=== PATIENT | male | born 1940 | race Caucasian/White ===

== ENCOUNTER 2016-06-29 12:01 | Inpatient (IN) | payer BC, OTHER ==
[~2016-06-29] VITALS: Ht 190.5 cm; Wt 113.3 kg
[~2016-06-29 12:01] MED LIST: AMLO-114 PO; ATEN-173 PO; CALC625T35 PO; DIGO0.2576 PO; ENAL10TA88 PO; FURO40TA3 PO; GABA800T2 PO; GLIP10TA10 PO; INSDGI SC; ISOS30TA13 PO; MAGN400T5 PO; METF1000 PO; MULTTAB58 PO; NITR0.4S UT; PLN/10 PO; SIMV10TA5 PO; SITA50TA9 PO; TEMA-79 PO; TRAM-10 PO; WARF6TAB PO
[2016-06-29] MEDS ORDERED: SODIUM CHLORIDE 0.9% 1000ML 1,000 ML IV STA (13:00)
[2016-06-29] MEDS ORDERED: ONDANSETRON INJ 2 MG/ML 2 ML VIAL IV STA (13:00)
[2016-06-29 13:49] LABS: MANUAL MICROSCOPIC REQUIRED? YES; URINE APPEARANCE CLOUDY (CLEAR); URINE BILIRUBIN NEG (NEG); URINE COLOR RED; URINE NITRITE NEG (NEG); UROBILINOGEN NEG (NEG)
[2016-06-29 13:50] LABS: BASO % 0.5 %; BASO ABS # 0.04 K/uL (0-0.2); EOS % 1.4 %; HEMATOCRIT 34.4 % (42-52); IG% 0.1 %; LYMPH % 16.7 %; LYMPH ABS # 1.22 K/uL (1.2-3.4); MEAN CELL VOLUME 85.4 fL (80-100); MEAN CORPUSCULAR HEMOGLOBIN 27.8 pg (25-34); MEAN CORPUSCULAR HGB CONC 32.6 g/dl (32-36); MEAN PLATELET VOLUME 11.6 fL (7.4-10.4); MONO % 7.7 %; NEUT % 73.6 %; PLATELET COUNT 160 K/uL (130-400); RED BLOOD COUNT 4.03 M/uL (4.7-6.1); WHITE BLOOD COUNT 7.29 K/uL (4.8-10.8)
[2016-06-29 14:00] LABS: PARTIAL THROMBOPLASTIN RATIO 1.3; PROTHROMBIN TIME (PATIENT) 22.6 SECONDS (9.0-12.0)
[2016-06-29 14:06] LABS: REVIEW REQ? NO
[2016-06-29 14:09] LABS: ALT/SGPT 28 U/L (12-78); BLOOD UREA NITROGEN 12 mg/dl (7-18); BUN/CREATININE RATIO 12.2 (10-20); CALCIUM 9.8 mg/dl (8.5-10.1); CARBON DIOXIDE 29 mmol/L (21-32); CHLORIDE 101 mmol/L (98-107); GLUCOSE 157 mg/dl (70-99); POTASSIUM 3.6 mmol/L (3.5-5.1); SODIUM 142 mmol/L (136-145)
[2016-06-29 14:23] LABS: ALKALINE PHOSPHATASE 63 U/L (45-117); AST/SGOT 42 U/L (15-37)
[2016-06-29 14:24] LABS: URINE RBC >30 /hpf (0-4)
[2016-06-29 14:25] LABS: URINE BACTERIA NEG (NEG)
[2016-06-29 14:26] LABS: ANISOCYTOSIS PRESENT; COMPLETE YES; OVALOCYTES 1+
--- NOTE | 2016-06-29 14:27 | DIAGNOSTIC IMAGING REPORT ---
ABDOMEN AND PELVIS CT WITHOUT CONTRAST CT DOSE: 1056.09 mGy.cm HISTORY: Left flank pain. TECHNIQUE: Multiaxial CT images of the abdomen and pelvis were performed without contrast. COMPARISON STUDY: None. FINDINGS: There is a 5 mm indeterminate pulmonary nodule within the right lower lobe on image 28. No pneumoperitoneum or pneumatosis. Old, healed left-sided rib fractures. There is a thick-walled hypodense 6 cm lesion within the right hepatic dome. There is also an adjacent 2.3 cm hypodense lesion within the left hepatic lobe. Prior cholecystectomy. The adrenal glands and pancreas are unremarkable. Tiny fat-containing umbilical hernia. Suboptimal evaluation for bowel pathology due to the lack of intravenous and oral contrast. However, there is no definite bowel wall thickening or obstruction. Colonic diverticulosis. The prostate gland is enlarged measuring 7.8 cm. Hyperdense material within the bladder lumen favors a blood clot. The spleen is enlarged measuring 15 cm in length. There is a 7 mm hypodense lesion at the splenic dome. This is too small to characterize. No retroperitoneal lymphadenopathy. Small right lower quadrant Spigelian hernia. This contains a nodular hypodense focus which measures 3.3 x 1.3 cm. This could represent a soft tissue nodule versus fluid within the hernia sac. There is a 6 mm stone within the right kidney and a punctate stone within the left kidney. No hydronephrosis. There are few hypodense lesions within the kidneys. The largest in the right kidney measures 4.2 cm. These are incompletely characterize on this noncontrast study but favor cysts. IMPRESSION: 1. A thick-walled hypodense 6 cm lesion within the right hepatic dome. This likely represents an abscess. A hepatic mass could also have a similar appearance. Therefore, recommend follow-up to ensure resolution. 2. There is also a 2.3 cm hypodense lesion within the left hepatic dome. This is incompletely characterize on this noncontrast study. This could also represent a developing abscess or hepatic mass. 3. Hyperdense material within the bladder lumen suggestive of a blood clot. This could obscure an underlying bladder mass. Cystoscopy is recommended for further evaluation on a nonemergent basis. 4. Bilateral nephrolithiasis. No hydronephrosis. 5. A small right lower quadrant Spigelian hernia which contains a 3.3 x 1.3 cm lobular hypodense focus. This could represent a small amount of fluid or soft tissue nodule. Follow up is recommended to ensure stability of this abnormality. 6. Splenomegaly. 7. A 5 mm indeterminate pulmonary nodule in the right lower lobe. Please refer to the chart below for recommended follow-up. Please refer to below summary of Fleischner criteria recommendations for follow-up of incidental CT nodules (Yeyo Neff, Guidelines for management of small pulmonary nodules detected on CT scans: A statement from the Fleischner Society, Radiology 237: [phone].) Low Risk Patient: Minimal or no smoking or other known risk factors for malignancy <=4 mm: No follow-up needed. >4-6 mm: Initial follow-up CT at 12 months; if unchanged, no further follow-up. >6-8 mm: Initial follow-up CT at 6-12 months then at 18-24 months if no change. >8 mm: Follow-up CT at \R\3, 9, 24 months, or PET and/or biopsy. High Risk Patient: History of smoking or other known risk factors <=4 mm: Follow-up at 12 months; if unchanged, no further follow-up. >4-6 mm: Initial follow-up CT at 6-12 months then at 18-24 months if no change. >6-8 mm: Initial follow-up CT at 3-6 months then at 9-12 and 24 months if no change. >8 mm: Same as low risk patient. Note: Nodule size measured as average of length and width. Ground glass or partly solid nodules may require longer follow-up to exclude indolent adenocarcinoma. Electronically signed by: Jam Metzger M.D. 06/29/2016 2:26 PM Dictated Date/Time: 06/29/2016 2:08 PM
[2016-06-29] MEDS ORDERED: LNX25 PO (14:41)
[2016-06-29] MEDS ORDERED: WARF10TA4 PO (14:41)
[2016-06-29] MEDS ORDERED: CLOP1TAB15 PO (14:41)
[2016-06-29] MEDS ORDERED: INSDGI SC (14:41)
[2016-06-29] MEDS ORDERED: FERR325T5 PO (14:41)
[2016-06-29] MEDS ORDERED: IMDSR/30 PO (14:41)
--- NOTE | 2016-06-29 19:32 | EMERGENCY ROOM VISIT NOTE ---
History Report prepared by Bertram: Glenys Heath Under the Supervision of: Dr. Esequiel Yoo D.O. First contact with patient: 12:56 Chief Complaint: URINARY SYMPTOMS Stated Complaint: URINARY BLEEDING Nursing Triage Summary: pt here with hematuria since last night denies any pain, frequency urine is bright red with clots. only have hx of liver ca hx of hematuria several mos ago, was to have cystoscope but bleeding stopped and did not have procedure on coumadin and plavix History of Present Illness The patient is a 75 year old male who presents to the Emergency Room with complaints of persistent hematuria which started last night. He has a history of kidney stones, but he has not had one in a while. In December 2010, he had a kidney stone which required lithotripsy to resolve. He has some back pain on the left side. He also has been feeling nauseous. He denies any fevers, vomiting , and abdominal pain. He has no history of cancer in the bladder or kidney. He has had blood work recently which found that he was anemic for which is taking iron. He has a history of hypertension, diabetes, or Afib. He is on Coumadin and Plavix. Source of History: patient Onset: last night Position: other (urinary) Quality: other (hematuria) Timing: other (persistent) Associated Symptoms: + back pain (left side), + nausea, No abdominal pain, No fevers, No vomiting Review of Systems See HPI for pertinent positives & negatives. A total of 10 systems reviewed and were otherwise negative. Past Medical & Surgical Medical Problems: (1) Hematuria, gross (2) No significant medical problems Surgical Problems: (1) No significant past surgical history Family History Noncontributory secondary to age. Social History Smoking Status: Never Smoker Alcohol Use: none Marital Status: Housing Status: lives with family Occupation Status: retired Current/Historical Medications Scheduled Amlodipine (Norvasc), 10 MG PO DAILY Atenolol (Tenormin), 25 MG PO Q2D Clopidogrel (Plavix), 75 MG PO DAILY Digoxin (Digoxin), 2 TAB PO DAILY Enalapril (Vasotec), 10 MG PO BID Felodipine (Felodipine ER), 10 MG PO DAILY Ferrous Sulfate (Ferrous Sulfate), 1 TAB PO TID Gabapentin (Neurontin), 800 MG PO BID Glipizide (Glipizide), 10 MG PO BID Insulin Glargine (Lantus), 40 UNITS SC QPM Isosorbide Mononitrate (Isosorbide Mononitrate ER), 1 TAB PO DAILY Magnesium Oxide (Mag-Ox), 400 MG PO DAILY Metformin Hcl (Glucophage), 1,000 MG PO QPM Multiple Vitamin (Multivitamin), 1 TAB PO DAILY Nitroglycerin (Nitrostat), 0.4 MG UT PRN Simvastatin (Zocor), 10 MG PO QPM Sitagliptin-Metformin Hcl (Janumet), 2 TABS PO DAILY Warfarin Sod (Jantoven), 10 MG PO DAILY Scheduled PRN Furosemide (Lasix), 40 MG PO DAILY PRN for edema/weight gain Temazepam (Restoril), 15 MG PO HS PRN for Sleep Tramadol (Ultram), 50 MG PO Q4H PRN for Pain Allergies Coded Allergies: No Known Allergies (Unverified , 06/29/16) PER PRE-ANESTHESIA QUESTIONNAIRE Physical Exam Vital Signs Date Time Temp Pulse Resp B/P Pulse Ox O2 Delivery O2 Flow Rate FiO2 06/29/16 18:00 57 18 163/66 96 Room Air 06/29/16 16:03 55 14 150/67 97 Room Air 06/29/16 14:12 58 18 151/69 94 Room Air 06/29/16 13:27 61 06/29/16 12:34 80 16 146/71 98 Room Air 06/29/16 12:13 36.9 63 16 154/63 96 Room Air Physical Exam GENERAL: Patient is awake, alert, and in no acute distress. Patient is resting comfortably and showing no signs of anxiety EYES: The conjunctivae are clear. The pupils are round and reactive. EARS, NOSE, MOUTH AND THROAT: The nose is without any evidence of any deformity. Mucous membranes are moist tongue is midline NECK: The neck is nontender and supple. RESPIRATORY: Normal respiratory effort is noted there is no evidence of wheezing rhonchi or rales CARDIOVASCULAR: Regular rate and rhythm noted to auscultation. Systolic murmur noted to auscultation. GASTROINTESTINAL: The abdomen is soft. Bowel sounds are present in all quadrants. Abdomen is nontender BACK: No midline tenderness or or step-off noted range of motion in flexion extension as well as rotation no signs of muscle spasm noted MUSCULOSKELETAL/EXTREMITIES: There is no evidence of gross deformity full range of motion is noted in the hips and shoulders SKIN: There is no obvious evidence of any rash. There are no petechiae, pallor or cyanosis noted. Pedal edema bilaterally. NEUROLOGIC: Patient is awake alert and oriented x3. Medical Decision & Procedures ER Provider Diagnostic Interpretation: Radiology results as stated below per my review and radiologist interpretation: ABDOMEN AND PELVIS CT WITHOUT CONTRAST CT DOSE: 1056.09 mGy.cm HISTORY: Left flank pain. TECHNIQUE: Multiaxial CT images of the abdomen and pelvis were performed without contrast. COMPARISON STUDY: None. FINDINGS: There is a 5 mm indeterminate pulmonary nodule within the right lower lobe on image 28. No pneumoperitoneum or pneumatosis. Old, healed left-sided rib fractures. There is a thick-walled hypodense 6 cm lesion within the right hepatic dome. There is also an adjacent 2.3 cm hypodense lesion within the left hepatic lobe. Prior cholecystectomy. The adrenal glands and pancreas are unremarkable. Tiny fat-containing umbilical hernia. Suboptimal evaluation for bowel pathology due to the lack of intravenous and oral contrast. However, there is no definite bowel wall thickening or obstruction. Colonic diverticulosis. The prostate gland is enlarged measuring 7.8 cm. Hyperdense material within the bladder lumen favors a blood clot. The spleen is enlarged measuring 15 cm in length. There is a 7 mm hypodense lesion at the splenic dome. This is too small to characterize. No retroperitoneal lymphadenopathy. Small right lower quadrant Spigelian hernia. This contains a nodular hypodense focus which measures 3.3 x 1.3 cm. This could represent a soft tissue nodule versus fluid within the hernia sac. There is a 6 mm stone within the right kidney and a punctate stone within the left kidney. No hydronephrosis. There are few hypodense lesions within the kidneys. The largest in the right kidney measures 4.2 cm. These are incompletely characterize on this noncontrast study but favor cysts. IMPRESSION: 1. A thick-walled hypodense 6 cm lesion within the right hepatic dome. This likely represents an abscess. A hepatic mass could also have a similar appearance. Therefore, recommend follow-up to ensure resolution. 2. There is also a 2.3 cm hypodense lesion within the left hepatic dome. This is incompletely characterize on this noncontrast study. This could also represent a developing abscess or hepatic mass. 3. Hyperdense material within the bladder lumen suggestive of a blood clot. This could obscure an underlying bladder mass. Cystoscopy is recommended for further evaluation on a nonemergent basis. 4. Bilateral nephrolithiasis. No hydronephrosis. 5. A small right lower quadrant Spigelian hernia which contains a 3.3 x 1.3 cm lobular hypodense focus. This could represent a small amount of fluid or soft tissue nodule. Follow up is recommended to ensure stability of this abnormality. 6. Splenomegaly. 7. A 5 mm indeterminate pulmonary nodule in the right lower lobe. Please refer to the chart below for recommended follow-up. Please refer to below summary of Fleischner criteria recommendations for follow-up of incidental CT nodules (Yeyo Neff, Guidelines for management of small pulmonary nodules detected on CT scans: A statement from the Fleischner Society, Radiology 237: [phone].) Low Risk Patient: Minimal or no smoking or other known risk factors for malignancy <=4 mm: No follow-up needed. >4-6 mm: Initial follow-up CT at 12 months; if unchanged, no further follow-up. >6-8 mm: Initial follow-up CT at 6-12 months then at 18-24 months if no change. >8 mm: Follow-up CT at \R\3, 9, 24 months, or PET and/or biopsy. High Risk Patient: History of smoking or other known risk factors <=4 mm: Follow-up at 12 months; if unchanged, no further follow-up. >4-6 mm: Initial follow-up CT at 6-12 months then at 18-24 months if no change. >6-8 mm: Initial follow-up CT at 3-6 months then at 9-12 and 24 months if no change. >8 mm: Same as low risk patient. Note: Nodule size measured as average of length and width. Ground glass or partly solid nodules may require longer follow-up to exclude indolent adenocarcinoma. Electronically signed by: Jam Metzger M.D. 06/29/2016 2:26 PM Dictated Date/Time: 06/29/2016 2:08 PM Laboratory Results 06/29/16 13:30 Red Blood Count 4.03, Mean Corpuscular Volume 85.4, Mean Corpuscular Hemoglobin 27.8, Mean Corpuscular Hemoglobin Concent 32.6, Mean Platelet Volume 11.6, Neutrophils (%) (Auto) 73.6, Lymphocytes (%) (Auto) 16.7, Monocytes (%) (Auto) 7.7, Eosinophils (%) (Auto) 1.4, Basophils (%) (Auto) 0.5, Neutrophils # (Auto) 5.36, Lymphocytes # (Auto) 1.22, Monocytes # (Auto) 0.56, Eosinophils # (Auto) 0.10, Basophils # (Auto) 0.04 06/29/16 13:30 Test 06/29/16 12:55 06/29/16 13:30 Urine Color RED Urine Appearance CLOUDY (CLEAR) Urine pH 7.0 (4.5-7.5) Urine Specific [place] 1.020 (1.000-1.030) Urine Protein 3+ (NEG) Urine Glucose (UA) TRACE (NEG) Urine Ketones NEG (NEG) Urine Occult Blood 3+ (NEG) Urine Nitrite NEG (NEG) Urine Bilirubin NEG (NEG) Urine Urobilinogen NEG (NEG) Urine Leukocyte Esterase NEG (NEG) Urine WBC (Auto) /hpf (0-5) Urine RBC (Auto) /hpf (0-4) Urine Hyaline Casts (Auto) /lpf (0-5) Urine Epithelial Cells (Auto) /lpf (0-5) Urine Bacteria (Auto) (NEG) Urine RBC >30 /hpf (0-4) Urine WBC 10-30 /hpf (0-5) Urine Epithelial Cells 0-5 /lpf (0-5) Urine Bacteria NEG (NEG) White Blood Count 7.29 K/uL (4.8-10.8) Red Blood Count 4.03 M/uL (4.7-6.1) Hemoglobin 11.2 g/dL (14.0-18.0) Hematocrit 34.4 % (42-52) Mean Corpuscular Volume 85.4 fL (80-100) Mean Corpuscular Hemoglobin 27.8 pg (25-34) Mean Corpuscular Hemoglobin Concent 32.6 g/dl (32-36) Platelet Count 160 K/uL (130-400) Mean Platelet Volume 11.6 fL (7.4-10.4) Neutrophils (%) (Auto) 73.6 % Lymphocytes (%) (Auto) 16.7 % Monocytes (%) (Auto) 7.7 % Eosinophils (%) (Auto) 1.4 % Basophils (%) (Auto) 0.5 % Neutrophils # (Auto) 5.36 K/uL (1.4-6.5) Lymphocytes # (Auto) 1.22 K/uL (1.2-3.4) Monocytes # (Auto) 0.56 K/uL (0.11-0.59) Eosinophils # (Auto) 0.10 K/uL (0-0.5) Basophils # (Auto) 0.04 K/uL (0-0.2) RDW Standard Deviation 64.7 fL (36.4-46.3) RDW Coefficient of Variation 20.6 % (11.5-14.5) Immature Granulocyte % (Auto) 0.1 % Immature Granulocyte # (Auto) 0.01 K/uL (0.00-0.02) Anisocytosis PRESENT Ovalocytes 1+ Prothrombin Time 22.6 SECONDS (9.0-12.0) Prothromb Time International Ratio 2.0 (0.9-1.1) Activated Partial Thromboplast Time 33.6 SECONDS (21.0-31.0) Partial Thromboplastin Ratio 1.3 Anion Gap 12.0 mmol/L (3-11) Est Creatinine Clear Calc Drug Dose 82.9 ml/min Estimated GFR () 83.8 Estimated GFR (Non- 72.3 BUN/Creatinine Ratio 12.2 (10-20) Calcium Level 9.8 mg/dl (8.5-10.1) Total Bilirubin 0.6 mg/dl (0.2-1) Direct Bilirubin < 0.1 mg/dl (0-0.2) Aspartate Amino Transf (AST/SGOT) 42 U/L (15-37) Alanine Aminotransferase (ALT/SGPT) 28 U/L (12-78) Alkaline Phosphatase 63 U/L (45-117) Total Protein 6.6 gm/dl (6.4-8.2) Albumin 3.6 gm/dl (3.4-5.0) Lipase 360 U/L (73-393) Laboratory results per my review. Medications Administered Medications (Trade) Dose Ordered Sig/Clare Route Start Time Stop Time Status Last Admin Dose Admin Sodium Chloride (Nss 1000ml) 1,000 ml @ 999 mls/hr Q1H1M STAT IV 06/29/16 13:00 06/29/16 14:00 DC 06/29/16 13:22 999 MLS/HR Ondansetron HCl (Zofran Inj) 4 mg NOW STAT IV 06/29/16 13:00 06/29/16 13:02 DC 06/29/16 13:21 4 MG ED Course 1259: The patient was evaluated in room B8. A complete history and physical examination were performed. 1300: Zofran Inj 4 mg IV, NSS 1000 ml @ 999 mls/hr IV. 1509: I reevaluated the patient. He is resting comfortably. 1705: I reevaluated the patient. He will be going to CT. 1717: I reevaluated the patient. He is resting comfortably. I updated him on the results. 1729: I reevaluated the patient. He is resting comfortably. I discussed results and treatment plan with him. He verbalizes agreement and understanding. The patient will be evaluated for further management and care. 1735: I discussed the patient's case with Dr. Hawkins [facility] - urology. He agrees with the treatment plan. 1743: I discussed the patient's case with Dr. Morales [facility] - hospitalist. The patient will be evaluated for further management. Medical Decision Prior records/ancillary studies reviewed. Triage Nursing notes reviewed. Additional history obtained from the family. Differential diagnosis: Etiologies such as renal colic, appendicitis, diverticulitis, mesenteric ischemia, aortic pathology, infections, inflammatory bowel disease, PUD, biliary pathology, UTI, as well as others were entertained. The patient is a 75-year-old male who presented to emergency department for an evaluation of hematuria. The patient has had ongoing hematuria since the beginning of the year. He had a cystoscopy scheduled but this was canceled. The patient's symptoms became very severe and he's been having significant pain. He' s been having intermittent episodes of clot retention. The patient was treated with IV fluids in the emergency department. I discussed the patient's laboratory and radiographic studies with him. I also discussed his case with the on-call urologist as well as the on-call [facility] hospitalist. They've agreed to evaluate the patient in the emergency apartment for further management and disposition. I feel the patient may go into worsening clot retention if he is discharged. At this time I recommended a Garza catheter be placed with bladder irrigation. If the patient's symptoms improve he may be a better candidate for outpatient management and cystoscopy however if his condition worsens he may require an inpatient cystoscopy to further evaluate the cause of his symptoms. Otherwise the patient's CAT scan did show diffuse metastatic disease but this is known compared to his previous CT the abdomen and pelvis that he had last week with his primary cancer doctor. Consults Time Called: 1730 Consulting Physician: JOSE Lancaster - urology Returned Call: [phone] I discussed the patient's case with him. He agrees with the treatment plan. Additional Consults: Time Called: 1740 Consulted Physician: JOSE Ervin - hospitalist Returned Call: [phone] Additional Comments: I discussed the patient's case with him. The patient will be evaluated for further management. Impression Primary Impression: Hematuria Additional Impressions: Urinary retention Abdominal pain Scribe Attestation The scribe's documentation has been prepared under my direction and personally reviewed by me in its entirety. I confirm that the note above accurately reflects all work, treatment, procedures, and medical decision making performed by me. Departure Information Dispostion Being Evaluated By Hospitalist Referrals Blake Silva M.D. (PCP) Patient Instructions My [facility] Problem Qualifiers Additional Impressions: Abdominal pain Abdominal location: generalized Qualified Codes: R10.84 - Generalized abdominal pain
[2016-06-29] MEDS ORDERED: ONDANSETRON INJ 2 MG/ML 2 ML VIAL IV PRN (19:45)
[2016-06-29] MEDS ORDERED: ACETAMINOPHEN 325 MG TAB PO PRN (19:45)
[2016-06-29] MEDS ORDERED: MAGNESIUM HYDROXIDE SUSP 30 ML UDC PO PRN (19:45)
[2016-06-29] MEDS ORDERED: NITROGLYCERIN 0.4 MG SL PER TAB CHARGE UT SCH (19:45)
[2016-06-29] MEDS ORDERED: FUROSEMIDE 40 MG TAB PO PRN (19:45)
[2016-06-29] MEDS ORDERED: TEMAZEPAM 15 MG CAP PO PRN (19:45)
[2016-06-29] MEDS ORDERED: GLUCAGON FOR INJ 1 MG VIAL SQ PRN (20:00)
[2016-06-29] MEDS ORDERED: GLUCOSE 10 TABS/TUBE PO PRN (20:00)
[2016-06-29] MEDS ORDERED: GLUCOSE 40% GEL 15 GM TUBE PO PRN (20:00)
[2016-06-29] MEDS ORDERED: DEXTROSE 50% 50 ML SYR IV PRN (20:00)
[2016-06-29 20:19] VITALS: BP 167/72; PULSE 73; TEMP 36.9; O2SAT 95; BMI 31.5
[2016-06-29] MEDS: INSULIN ASPART 100 UNITS/ML 3 ML PEN SC SCH (21:00)
--- NOTE | 2016-06-29 21:16 | History and Physical ---
History & Physical Date & Time of Service: Jun 29, 2016 at 21:01 Chief Complaint: Hematuria Primary Care Physician: Blake Silva M.D. History of Present Illness Source: patient, spouse Pt is a 75 yo male who presents to the ER with complaints of persistent hematuria which started last night. He reports passing large clots in his urine, he states some clots are so large that they cause pain. Pt has a hx of kidney stones and has seen urology in the past for this same issue in which he was thought to have benign prostatic bleeding. He denies any fevers, vomiting, and abdominal pain. He has no history of cancer in the bladder or kidney. He has had blood work recently which found that he was anemic for which is taking iron. He has a history of hypertension, diabetes, hepatocellular cancer, CAD with 4 stents and Afib. He is on Coumadin and Plavix. Past Medical/Surgical History Medical Problems: (1) No significant medical problems Status: Chronic Surgical Problems: (1) No significant past surgical history Status: Chronic Social History Smoking Status: Never Smoker Smokeless Tobacco Use: No Marital Status: Occupational Status: retired Allergies Coded Allergies: No Known Allergies (Unverified , 06/29/16) PER PRE-ANESTHESIA QUESTIONNAIRE Home Medications Scheduled Amlodipine (Norvasc), 10 MG PO DAILY Atenolol (Tenormin), 25 MG PO Q2D Clopidogrel (Plavix), 75 MG PO DAILY Digoxin (Digoxin), 2 TAB PO DAILY Enalapril (Vasotec), 10 MG PO BID Felodipine (Felodipine ER), 10 MG PO DAILY Ferrous Sulfate (Ferrous Sulfate), 1 TAB PO TID Gabapentin (Neurontin), 800 MG PO BID Glipizide (Glipizide), 10 MG PO BID Insulin Glargine (Lantus), 40 UNITS SC QPM Isosorbide Mononitrate (Isosorbide Mononitrate ER), 1 TAB PO DAILY Magnesium Oxide (Mag-Ox), 400 MG PO DAILY Metformin Hcl (Glucophage), 1,000 MG PO QPM Multiple Vitamin (Multivitamin), 1 TAB PO DAILY Nitroglycerin (Nitrostat), 0.4 MG UT PRN Simvastatin (Zocor), 10 MG PO QPM Sitagliptin-Metformin Hcl (Janumet), 2 TABS PO DAILY Warfarin Sod (Jantoven), 10 MG PO DAILY Scheduled PRN Furosemide (Lasix), 40 MG PO DAILY PRN for edema/weight gain Temazepam (Restoril), 15 MG PO HS PRN for Sleep Tramadol (Ultram), 50 MG PO Q4H PRN for Pain Review of Systems Constitutional: No chills, No fever Respiratory: No cough, No sputum Cardiovascular: No chest pain, No orthopnea Abdomen: No diarrhea, No nausea, No pain Musculoskeletal: No joint pain, No muscle pain Genitourinary - Male: + dysuria, + hematuria, + urinary frequency Neurologic: No paralysis, No weakness Psychiatric: No anhedonism, No depression symptoms Endocrine: No excessive thirst, No fatigue Physical Exam Vital Signs Date Time Temp Pulse Resp B/P Pulse Ox O2 Delivery O2 Flow Rate FiO2 06/29/16 19:32 86 18 156/78 96 Room Air 06/29/16 18:00 57 18 163/66 96 Room Air 06/29/16 16:03 55 14 150/67 97 Room Air 06/29/16 14:12 58 18 151/69 94 Room Air 06/29/16 13:27 61 06/29/16 12:34 80 16 146/71 98 Room Air 06/29/16 12:13 36.9 63 16 154/63 96 Room Air General Appearance: WD/WN, + mild distress Head: normocephalic, atraumatic Neck: supple, no adenopathy Respiratory/Chest: lungs clear, normal breath sounds Cardiovascular: no gallop, no JVD Abdomen/GI: non tender, soft Neurologic/Psych: alert, normal mood/affect, oriented x 3 Skin: normal color, warm/dry Diagnostics Laboratory Results Results Past 24 Hours Test 06/29/16 12:55 06/29/16 13:30 Range/Units Urine Color RED Urine Appearance CLOUDY CLEAR Urine pH 7.0 4.5-7.5 Urine Specific Holcomb 1.020 1.000-1.030 Urine Protein 3+ NEG Urine Glucose (UA) TRACE NEG Urine Ketones NEG NEG Urine Occult Blood 3+ NEG Urine Nitrite NEG NEG Urine Bilirubin NEG NEG Urine Urobilinogen NEG NEG Urine Leukocyte Esterase NEG NEG Urine WBC (Auto) 0-5 /hpf Urine RBC (Auto) 0-4 /hpf Urine Hyaline Casts (Auto) 0-5 /lpf Urine Epithelial Cells (Auto) 0-5 /lpf Urine Bacteria (Auto) NEG Urine RBC >30 0-4 /hpf Urine WBC 10-30 0-5 /hpf Urine Epithelial Cells 0-5 0-5 /lpf Urine Bacteria NEG NEG White Blood Count 7.29 4.8-10.8 K/uL Red Blood Count 4.03 4.7-6.1 M/uL Hemoglobin 11.2 14.0-18.0 g/dL Hematocrit 34.4 42-52 % Mean Corpuscular Volume 85.4 80-100 fL Mean Corpuscular Hemoglobin 27.8 25-34 pg Mean Corpuscular Hemoglobin Concent 32.6 32-36 g/dl Platelet Count 160 130-400 K/uL Mean Platelet Volume 11.6 7.4-10.4 fL Neutrophils (%) (Auto) 73.6 % Lymphocytes (%) (Auto) 16.7 % Monocytes (%) (Auto) 7.7 % Eosinophils (%) (Auto) 1.4 % Basophils (%) (Auto) 0.5 % Neutrophils # (Auto) 5.36 1.4-6.5 K/uL Lymphocytes # (Auto) 1.22 1.2-3.4 K/uL Monocytes # (Auto) 0.56 0.11-0.59 K/uL Eosinophils # (Auto) 0.10 0-0.5 K/uL Basophils # (Auto) 0.04 0-0.2 K/uL RDW Standard Deviation 64.7 36.4-46.3 fL RDW Coefficient of Variation 20.6 11.5-14.5 % Immature Granulocyte % (Auto) 0.1 % Immature Granulocyte # (Auto) 0.01 0.00-0.02 K/uL Anisocytosis PRESENT Ovalocytes 1+ Prothrombin Time 22.6 9.0-12.0 SECONDS Prothromb Time International Ratio 2.0 0.9-1.1 Activated Partial Thromboplast Time 33.6 21.0-31.0 SECONDS Partial Thromboplastin Ratio 1.3 Sodium Level 142 136-145 mmol/L Potassium Level 3.6 3.5-5.1 mmol/L Chloride Level 101 98-107 mmol/L Carbon Dioxide Level 29 21-32 mmol/L Anion Gap 12.0 3-11 mmol/L Blood Urea Nitrogen 12 7-18 mg/dl Creatinine 1.00 0.60-1.40 mg/dl Est Creatinine Clear Calc Drug Dose 82.9 ml/min Estimated GFR () 83.8 Estimated GFR (Non- 72.3 BUN/Creatinine Ratio 12.2 10-20 Random Glucose 157 70-99 mg/dl Calcium Level 9.8 8.5-10.1 mg/dl Total Bilirubin 0.6 0.2-1 mg/dl Direct Bilirubin < 0.1 0-0.2 mg/dl Aspartate Amino Transf (AST/SGOT) 42 15-37 U/L Alanine Aminotransferase (ALT/SGPT) 28 12-78 U/L Alkaline Phosphatase 63 45-117 U/L Total Protein 6.6 6.4-8.2 gm/dl Albumin 3.6 3.4-5.0 gm/dl Lipase 360 73-393 U/L Microbiology Results 06/29/16 Urine Culture, Received Pending Impression Assessment and Plan Pt is a 75 yo male with persistent hematuria x 1 day Hematuria - Pt was admitted back in Mar for benign prostatic bleeding. Was due for cytoscopy but pt improved with conservative measure. Pt also high risk from cardiac hx. Will admit to tele at this time. Hg improved from baseline. Cont to monitor Hg. CBC in AM. CT abd/pelvis notable for large clot. Urology consulted for likely CBI and cystoscopy if indicated. Iron def anemia - Improved from baseline. Cont taking iron supplements Afib - Cont dig, hold coumadin at this time due hematuria CAD with 4 stents - Cont atenolol, imdur, zocor and lasix. Hold plavix. Hepatic mass - Hx of HCC, not enlarged from prev CT at [facility]. Follow as OP DM II - Cont lantus and ISS and accuchecks HTN - Cont norvasc and atenolol Chemical DVT ppx contraindicated, SCDs only Pt is DNR VTE Prophylaxis VTE Risk Assessment Done? Y/N: Yes Risk Level: Moderate
[2016-06-29] MEDS ORDERED: PHYTONADIONE INJ 10 MG in SODIUM CHLORIDE 0.9% 50ML 50 ML IV ONE (22:00)
[2016-06-29 22:02] LABS: HEMATOCRIT 34.8 % (42-52)
[2016-06-29] MEDS: SODIUM CHLORIDE 0.9% 1000ML 1,000 ML IV SCH (22:15)
[2016-06-29] MEDS: SIMVASTATIN 10 MG TAB PO SCH (22:18)
[2016-06-29] MEDS: GABAPENTIN 800 MG TAB PO SCH (23:38)
[2016-06-29] MEDS: ENALAPRIL MALEATE 10 MG TAB PO SCH (23:39)
[2016-06-29] MEDS: INSULIN GLARGINE SOLOSTAR 100 UNITS/ML 3 ML PEN SC SCH (23:41)
[2016-06-30] VITALS (9 sets, daily range): BP systolic 126–164; BP diastolic 64–80; PULSE 43–82; TEMP 36.4–37.1; O2SAT 94–98
[2016-06-30 04:23] LABS: BASO % 0.3 %; BASO ABS # 0.02 K/uL (0-0.2); HEMATOCRIT 32.3 % (42-52); IG% 0.3 %; LYMPH % 25.3 %; LYMPH ABS # 1.54 K/uL (1.2-3.4); MEAN CORPUSCULAR HEMOGLOBIN 27.5 pg (25-34); MEAN CORPUSCULAR HGB CONC 31.3 g/dl (32-36); MEAN PLATELET VOLUME 11.8 fL (7.4-10.4); MONO % 6.4 %; NEUT % 65.7 %; PLATELET COUNT 134 K/uL (130-400); RED BLOOD COUNT 3.67 M/uL (4.7-6.1); WHITE BLOOD COUNT 6.09 K/uL (4.8-10.8)
[2016-06-30 04:38] LABS: INR 1.3 (0.9-1.1); PROTHROMBIN TIME (PATIENT) 14.6 SECONDS (9.0-12.0)
[2016-06-30 04:43] LABS: BUN/CREATININE RATIO 12.9 (10-20); CALCIUM 8.6 mg/dl (8.5-10.1); CREATININE 0.93 mg/dl (0.60-1.40)
[2016-06-30 05:09] LABS: COMPLETE YES; GIANT PLATELETS 1+; OVALOCYTES 1+
[2016-06-30 05:52] LABS: ESTIMATED AVERAGE GLUCOSE 143 mg/dl; HA1C FLAG Normal (Normal)
[2016-06-30] MEDS: SODIUM CHLORIDE 0.9% 1000ML 1,000 ML IV SCH ×2 (07:41→15:18)
[2016-06-30] MEDS: ENALAPRIL MALEATE 10 MG TAB PO SCH ×2 (07:41→20:12)
[2016-06-30] MEDS: GABAPENTIN 800 MG TAB PO SCH ×2 (07:42→20:12)
[2016-06-30] MEDS: MULTIVITAMIN TAB PO SCH (07:42)
[2016-06-30] MEDS: FERROUS SULFATE 325 MG TAB PO SCH ×3 (07:42→17:06)
[2016-06-30] MEDS: FELODIPINE 5 MG TABCR PO SCH (07:43)
[2016-06-30] MEDS: AMLODIPINE BESYLATE 5 MG TAB PO SCH (07:44)
[2016-06-30] MEDS: INSULIN ASPART 100 UNITS/ML 3 ML PEN SC SCH ×4 (07:50→21:34)
[2016-06-30 09:36] LABS: HEMATOCRIT 34.1 % (42-52)
[2016-06-30] MEDS: ISOSORBIDE MONONITRATE 30 MG TABCR PO SCH (09:52)
[2016-06-30] MEDS: MAGNESIUM OXIDE 400 MG TAB PO SCH (09:52)
--- NOTE | 2016-06-30 13:06 | Hospitalist Progress Note ---
Hospitalist Progress Note Date of Service Jun 30, 2016. Subjective Pt evaluation today including: conversation w/ patient, conversation w/ family , physical exam, chart review, lab review, review of studies, review of inpatient medication list Patient feels fatigued. No SOB, cough, or lightheadedness. His has minimal discomfort in the bladder, but does not describe this as pain. His is present. Additional Comments: A 10 system review was performed and all were negative. Positives were placed in the subjective section. Objective Vital Signs Date Time Temp Pulse Resp B/P Pulse Ox O2 Delivery O2 Flow Rate FiO2 06/30/16 11:29 36.6 43 20 126/64 98 Room Air 06/30/16 08:00 Room Air 06/30/16 07:49 37.1 82 20 164/71 96 Room Air 06/30/16 05:15 36.4 62 18 153/75 94 06/30/16 04:17 95 Room Air 06/30/16 00:01 36.8 62 18 161/80 95 06/29/16 20:19 36.9 73 20 167/72 95 Room Air 06/29/16 19:32 86 18 156/78 96 Room Air 06/29/16 18:00 57 18 163/66 96 Room Air 06/29/16 16:03 55 14 150/67 97 Room Air 06/29/16 14:12 58 18 151/69 94 Room Air 06/29/16 13:27 61 Physical Exam Notes: GEN: Awake, alert, and oriented x 3. Not in acute distress HEENT: Tm's intact, no inflammation, EOMI, PERRLA, MMM Neck: Soft, supple Lungs: CTA b/l, no r/r/w Heart: IRREG, nrl S1S2 with III/ BERENICE Abdomen: Soft, NT, ND, + BS EXT: No C/C trace edema at the ankles b/l. NEURO: CN's II-XII grossly intact, non-focal Skin: warm, dry, no rashes PSYCH: pleasant, cooperative. Laboratory Results Last 24 Hours Test 06/29/16 13:30 06/29/16 21:20 06/29/16 21:45 06/30/16 00:30 White Blood Count 7.29 K/uL Red Blood Count 4.03 M/uL Hemoglobin 11.2 g/dL 10.9 g/dL Hematocrit 34.4 % 34.8 % Mean Corpuscular Volume 85.4 fL Mean Corpuscular Hemoglobin 27.8 pg Mean Corpuscular Hemoglobin Concent 32.6 g/dl Platelet Count 160 K/uL Mean Platelet Volume 11.6 fL Neutrophils (%) (Auto) 73.6 % Lymphocytes (%) (Auto) 16.7 % Monocytes (%) (Auto) 7.7 % Eosinophils (%) (Auto) 1.4 % Basophils (%) (Auto) 0.5 % Neutrophils # (Auto) 5.36 K/uL Lymphocytes # (Auto) 1.22 K/uL Monocytes # (Auto) 0.56 K/uL Eosinophils # (Auto) 0.10 K/uL Basophils # (Auto) 0.04 K/uL RDW Standard Deviation 64.7 fL RDW Coefficient of Variation 20.6 % Immature Granulocyte % (Auto) 0.1 % Immature Granulocyte # (Auto) 0.01 K/uL Anisocytosis PRESENT Ovalocytes 1+ Prothrombin Time 22.6 SECONDS Prothromb Time International Ratio 2.0 Activated Partial Thromboplast Time 33.6 SECONDS Partial Thromboplastin Ratio 1.3 Sodium Level 142 mmol/L Potassium Level 3.6 mmol/L Chloride Level 101 mmol/L Carbon Dioxide Level 29 mmol/L Anion Gap 12.0 mmol/L Blood Urea Nitrogen 12 mg/dl Creatinine 1.00 mg/dl Est Creatinine Clear Calc Drug Dose 82.9 ml/min Estimated GFR () 83.8 Estimated GFR (Non- 72.3 BUN/Creatinine Ratio 12.2 Random Glucose 157 mg/dl Calcium Level 9.8 mg/dl Total Bilirubin 0.6 mg/dl Direct Bilirubin < 0.1 mg/dl Aspartate Amino Transf (AST/SGOT) 42 U/L Alanine Aminotransferase (ALT/SGPT) 28 U/L Alkaline Phosphatase 63 U/L Total Protein 6.6 gm/dl Albumin 3.6 gm/dl Lipase 360 U/L Stool Occult Blood NEGATIVE Bedside Glucose 168 mg/dl Test 06/30/16 03:50 06/30/16 07:05 06/30/16 09:28 06/30/16 11:28 White Blood Count 6.09 K/uL Red Blood Count 3.67 M/uL Hemoglobin 10.1 g/dL 10.8 g/dL Hematocrit 32.3 % 34.1 % Mean Corpuscular Volume 88.0 fL Mean Corpuscular Hemoglobin 27.5 pg Mean Corpuscular Hemoglobin Concent 31.3 g/dl Platelet Count 134 K/uL Mean Platelet Volume 11.8 fL Neutrophils (%) (Auto) 65.7 % Lymphocytes (%) (Auto) 25.3 % Monocytes (%) (Auto) 6.4 % Eosinophils (%) (Auto) 2.0 % Basophils (%) (Auto) 0.3 % Neutrophils # (Auto) 4.00 K/uL Lymphocytes # (Auto) 1.54 K/uL Monocytes # (Auto) 0.39 K/uL Eosinophils # (Auto) 0.12 K/uL Basophils # (Auto) 0.02 K/uL RDW Standard Deviation 67.7 fL RDW Coefficient of Variation 20.9 % Immature Granulocyte % (Auto) 0.3 % Immature Granulocyte # (Auto) 0.02 K/uL Giant Platelets 1+ Ovalocytes 1+ Prothrombin Time 14.6 SECONDS Prothromb Time International Ratio 1.3 Sodium Level 145 mmol/L Potassium Level 4.0 mmol/L Chloride Level 107 mmol/L Carbon Dioxide Level 33 mmol/L Anion Gap 5.0 mmol/L Blood Urea Nitrogen 12 mg/dl Creatinine 0.93 mg/dl Est Creatinine Clear Calc Drug Dose 90.8 ml/min Estimated GFR () 91.5 Estimated GFR (Non- 78.9 BUN/Creatinine Ratio 12.9 Random Glucose 128 mg/dl Estimated Average Glucose 143 mg/dl Hemoglobin A1c 6.6 % Calcium Level 8.6 mg/dl Digoxin Level 1.3 ng/ml Bedside Glucose 117 mg/dl 150 mg/dl Assessment and Plan 1) Hematuria - improving, cont bladder irrigation. Await urology evaluation 2) A.Fib - rate stable, warfarin held. 3) Type II DM - Sliding scale insulin and Lantus. 4) HTN - stable now. 5) Liver CA DVT prophylaxis: SCDs
[2016-06-30] MEDS: TRAMADOL HCL 50 MG TAB PO PRN (14:28)
[2016-06-30] MEDS ORDERED: LIDOCAINE HCL 2% JELLY 30 ML TUBE EXT PRN (15:15)
[2016-06-30] MEDS ORDERED: NURSING DECISION MEDICATION ORDER SCH (15:15)
--- NOTE | 2016-06-30 15:15 | Urology Consultation ---
History General Date of Service: Jun 30, 2016. Chief Complaint: Gross hematuria Primary Care Physician: Blake Silva M.D. Pt seen a urologist before?: Yes If yes, why?: Dr. Alcantara, history of hematuria History of Present Illness 75 yo male admitted for difficulties with worsening hematuria x 2 days. He notes longstanding weakness for months, for which he was considering cardiac rehab. Notes he was voiding adequately until he began to have gross hematuria about 2 days ago without clear precipitating factors. His inpatient and outpatient notes are reviewed. He was last seen by Dr. Alcantara in Feb 2016 and has required stopping his anticoagulation in the past for this problem. His history of CAD and metastatic malignancy are noted. Patient originally had difficulties obtaining clearance for operative cystoscopic management of his hematuria in Mar 2016 and then his urine cleared prior to OR, which was deferred. CT scan images reviewed - no hydro, + large prostate, likely blood in bladder. He is currently comfortable, complains of weakness similar to prior and thompson discomfort. Urine is maximo on brisk CBI, no clots or obstruction per patient. Urology consultation is sought out to assist with his inpatient care. Imaging Imaging: Ultrasound Laboratory Last 24 Hours Test 06/29/16 13:30 06/29/16 21:20 06/29/16 21:45 06/30/16 00:30 White Blood Count 7.29 K/uL Red Blood Count 4.03 M/uL Hemoglobin 11.2 g/dL 10.9 g/dL Hematocrit 34.4 % 34.8 % Mean Corpuscular Volume 85.4 fL Mean Corpuscular Hemoglobin 27.8 pg Mean Corpuscular Hemoglobin Concent 32.6 g/dl Platelet Count 160 K/uL Mean Platelet Volume 11.6 fL Neutrophils (%) (Auto) 73.6 % Lymphocytes (%) (Auto) 16.7 % Monocytes (%) (Auto) 7.7 % Eosinophils (%) (Auto) 1.4 % Basophils (%) (Auto) 0.5 % Neutrophils # (Auto) 5.36 K/uL Lymphocytes # (Auto) 1.22 K/uL Monocytes # (Auto) 0.56 K/uL Eosinophils # (Auto) 0.10 K/uL Basophils # (Auto) 0.04 K/uL RDW Standard Deviation 64.7 fL RDW Coefficient of Variation 20.6 % Immature Granulocyte % (Auto) 0.1 % Immature Granulocyte # (Auto) 0.01 K/uL Anisocytosis PRESENT Ovalocytes 1+ Prothrombin Time 22.6 SECONDS Prothromb Time International Ratio 2.0 Activated Partial Thromboplast Time 33.6 SECONDS Partial Thromboplastin Ratio 1.3 Sodium Level 142 mmol/L Potassium Level 3.6 mmol/L Chloride Level 101 mmol/L Carbon Dioxide Level 29 mmol/L Anion Gap 12.0 mmol/L Blood Urea Nitrogen 12 mg/dl Creatinine 1.00 mg/dl Est Creatinine Clear Calc Drug Dose 82.9 ml/min Estimated GFR () 83.8 Estimated GFR (Non- 72.3 BUN/Creatinine Ratio 12.2 Random Glucose 157 mg/dl Calcium Level 9.8 mg/dl Total Bilirubin 0.6 mg/dl Direct Bilirubin < 0.1 mg/dl Aspartate Amino Transf (AST/SGOT) 42 U/L Alanine Aminotransferase (ALT/SGPT) 28 U/L Alkaline Phosphatase 63 U/L Total Protein 6.6 gm/dl Albumin 3.6 gm/dl Lipase 360 U/L Stool Occult Blood NEGATIVE Bedside Glucose 168 mg/dl Test 06/30/16 03:50 06/30/16 07:05 06/30/16 09:28 06/30/16 11:28 White Blood Count 6.09 K/uL Red Blood Count 3.67 M/uL Hemoglobin 10.1 g/dL 10.8 g/dL Hematocrit 32.3 % 34.1 % Mean Corpuscular Volume 88.0 fL Mean Corpuscular Hemoglobin 27.5 pg Mean Corpuscular Hemoglobin Concent 31.3 g/dl Platelet Count 134 K/uL Mean Platelet Volume 11.8 fL Neutrophils (%) (Auto) 65.7 % Lymphocytes (%) (Auto) 25.3 % Monocytes (%) (Auto) 6.4 % Eosinophils (%) (Auto) 2.0 % Basophils (%) (Auto) 0.3 % Neutrophils # (Auto) 4.00 K/uL Lymphocytes # (Auto) 1.54 K/uL Monocytes # (Auto) 0.39 K/uL Eosinophils # (Auto) 0.12 K/uL Basophils # (Auto) 0.02 K/uL RDW Standard Deviation 67.7 fL RDW Coefficient of Variation 20.9 % Immature Granulocyte % (Auto) 0.3 % Immature Granulocyte # (Auto) 0.02 K/uL Giant Platelets 1+ Ovalocytes 1+ Prothrombin Time 14.6 SECONDS Prothromb Time International Ratio 1.3 Sodium Level 145 mmol/L Potassium Level 4.0 mmol/L Chloride Level 107 mmol/L Carbon Dioxide Level 33 mmol/L Anion Gap 5.0 mmol/L Blood Urea Nitrogen 12 mg/dl Creatinine 0.93 mg/dl Est Creatinine Clear Calc Drug Dose 90.8 ml/min Estimated GFR () 91.5 Estimated GFR (Non- 78.9 BUN/Creatinine Ratio 12.9 Random Glucose 128 mg/dl Estimated Average Glucose 143 mg/dl Hemoglobin A1c 6.6 % Calcium Level 8.6 mg/dl Digoxin Level 1.3 ng/ml Bedside Glucose 117 mg/dl 150 mg/dl Problem List Medical Problems: (1) Abdominal pain Status: Acute (2) Hematuria Status: Acute (3) Urinary retention Status: Acute Past History A Fib, BPH, cancer - liver, coronary artery disease, diabetes, high cholesterol , hypertension, kidney stones Past Surgical History: appendectomy, cardiac catheterization, cholecystectomy, orthopedic surgery, TKR, tonsillectomy, other (cataracts, rotator cuff, hernia repair) Family History Cardiac disease, DM, HTN, no CAP Social History Hx Tobacco Use In Past Year?: No Smoking: non-smoker Alcohol: no current use Drug use: none Marital status: Housing status: lives with family Occupation status: retired Allergies Coded Allergies: No Known Allergies (Unverified , 06/29/16) PER PRE-ANESTHESIA QUESTIONNAIRE Medications Home Medications: Home Meds and Scripts Medications Dose Route/Sig Max Daily Dose Days Date Category Ferrous Sulfate 325 Mg Tab 1 Tab PO TID 06/29/16 Reported Plavix (Clopidogrel Bisulfate) 75 Mg Tab 75 Mg PO DAILY 06/29/16 Reported Jantoven (Warfarin Sodium) 10 Mg Tab 10 Mg PO DAILY 06/29/16 Reported Lantus (Insulin Glargine) 100 Unit/Ml Inj 40 Units SC QPM 06/29/16 Reported Isosorbide Mononitrate ER (Isosorbide Mononitrate) 30 Mg Tabcr 1 Tab PO DAILY 06/29/16 Reported Digoxin 0.25 Mg Tab 2 Tab PO DAILY 06/29/16 Reported Multivitamin (Multiple Vitamin) 1 Tab Tab 1 Tab PO DAILY 08/09/14 Reported Ultram (Tramadol HCl) 50 Mg Tab 50 Mg PO Q4H PRN 08/09/14 Reported Restoril (Temazepam) 15 Mg Cap 15 Mg PO HS PRN 08/09/14 Reported Nitrostat (Nitroglycerin) 0.4 Mg Sub 0.4 Mg UT PRN 08/09/14 Reported Lasix (Furosemide) 40 Mg Tab 40 Mg PO DAILY PRN 08/09/14 Reported Zocor (Simvastatin) 10 Mg Tab 10 Mg PO QPM 08/09/14 Reported Glucophage (Metformin Hcl) 1,000 Mg Tab 1,000 Mg PO QPM 08/09/14 Reported Mag-Ox (Magnesium Oxide) 400 Mg Tab 400 Mg PO DAILY 08/09/14 Reported Janumet (Sitagliptin-Metformin Hcl) 1 Tab Tab 2 Tabs PO DAILY 08/09/14 Reported Glipizide 10 Mg Tab 10 Mg PO BID 08/09/14 Reported Neurontin (Gabapentin) 800 Mg Tab 800 Mg PO BID 08/09/14 Reported Felodipine ER (Felodipine) 10 Mg Tabcr 10 Mg PO DAILY 08/09/14 Reported Vasotec (Enalapril Maleate) 10 Mg Tab 10 Mg PO BID 08/09/14 Reported Tenormin (Atenolol) 25 Mg Tab 25 Mg PO Q2D 08/09/14 Reported Norvasc (Amlodipine Besylate) 10 Mg Tab 10 Mg PO DAILY 08/09/14 Reported Inpatient Medications: Current Inpatient Medications Medications (Trade) Dose Ordered Sig/Clare Route Start Time Stop Time Status Last Admin Dose Admin Sodium Chloride (Nss 1000ml) 1,000 ml @ 100 mls/hr Q10H IV 06/29/16 19:42 07/29/16 19:41 06/30/16 07:41 100 MLS/HR Acetaminophen (Tylenol Tab) 650 mg Q4H PRN PO 06/29/16 19:45 07/29/16 19:44 Magnesium Hydroxide (Milk Of Magnesia Susp) 30 ml Q12H PRN PO 06/29/16 19:45 07/29/16 19:44 Ondansetron HCl (Zofran Inj) 4 mg Q6H PRN IV 06/29/16 19:45 07/29/16 19:44 Amlodipine Besylate (Norvasc Tab) 10 mg DAILY PO 06/30/16 09:00 07/30/16 08:59 06/30/16 07:44 10 MG Atenolol (Tenormin Tab) 25 mg Q2D@0900 PO 06/30/16 09:00 07/30/16 08:59 06/30/16 07:42 25 MG Digoxin (Lanoxin Tab) 0.5 mg DAILY@1600 PO 06/30/16 16:00 07/30/16 15:59 Enalapril Maleate (Vasotec Tab) 10 mg BID PO 06/29/16 21:00 07/29/16 20:59 06/30/16 07:41 10 MG Ferrous Sulfate (Feosol Tab) 325 mg TIDM PO 06/30/16 07:30 07/30/16 07:29 06/30/16 12:10 325 MG Furosemide (Lasix Tab) 40 mg DAILY PRN PO 06/29/16 19:45 07/29/16 19:44 Gabapentin (Neurontin Tab) 800 mg BID PO 06/29/16 21:00 07/29/16 20:59 06/30/16 07:42 800 MG Insulin Glargine (Lantus Solostar Pen) 40 unit QPM SC 06/29/16 21:00 07/29/16 20:59 06/29/16 23:41 40 UNIT Isosorbide Mononitrate (Imdur Ext Rel Tab) 30 mg DAILY PO 06/30/16 09:00 07/30/16 08:59 06/30/16 09:52 30 MG Magnesium Oxide (Mag-Ox Tab) 400 mg DAILY PO 06/30/16 09:00 07/30/16 08:59 06/30/16 09:52 400 MG Multivitamins (Multivitamin Tab) 1 tab DAILY PO 06/30/16 09:00 07/30/16 08:59 06/30/16 07:42 1 TAB Nitroglycerin (Nitrostat Tab) 0.4 mg PRN UT 06/29/16 19:45 07/29/16 19:44 Simvastatin (Zocor Tab) 10 mg QPM PO 06/29/16 21:00 07/29/16 20:59 06/29/16 22:18 10 MG Temazepam (Restoril Cap) 15 mg HS PRN PO 06/29/16 19:45 07/29/16 19:44 Tramadol HCl (Ultram Tab) 50 mg Q4H PRN PO 06/29/16 19:45 07/29/16 19:44 Felodipine (Plendil Tabcr) 10 mg DAILY PO 06/30/16 09:00 07/30/16 08:59 06/30/16 07:43 10 MG Insulin Aspart (novoLOG ASPART) SLIDING SCALE If C... ACHS SC 06/29/16 21:00 07/29/16 20:59 06/30/16 12:14 3 UNITS Glucose (Glucose 40% Gel) 15-30 GRAMS 15 GRAMS... UD PRN PO 06/29/16 20:00 07/29/16 19:59 Glucose (Glucose Chew Tab) 4-8 Tablets 4 Tabl... UD PRN PO 06/29/16 20:00 07/29/16 19:59 Dextrose (Dextrose 50% 50ML Syringe) 25-50ML OF 50% DW IV FOR... UD PRN IV 06/29/16 20:00 07/29/16 19:59 Glucagon (Glucagon Inj) 1 mg UD PRN SQ 06/29/16 20:00 07/29/16 19:59 Review of Systems Review of Systems Constitutional: No chills, No fever Eyes: No double vision, No eye pain Neurological: No seizures Endocrine: + tired/sluggish Gastrointestinal: No nausea, No vomiting Cardiovascular: No chest pain Respiratory: No coughing up blood Skin: No boils Musculoskeletal: No back pain Blood / Lymphatic: + bleed easily, + see HPI Ears / Nose / Throat: No hearing loss Psychologic / Mental: No difficulty sleeping, No trouble remembering Male : + blood in urine, + see HPI Physical Exam Vital Signs: Vital Signs Past 12 Hours Date Time Temp Pulse Resp B/P Pulse Ox O2 Delivery O2 Flow Rate FiO2 06/30/16 11:29 36.6 43 20 126/64 98 Room Air 06/30/16 08:00 Room Air 06/30/16 07:49 37.1 82 20 164/71 96 Room Air 06/30/16 05:15 36.4 62 18 153/75 94 06/30/16 04:17 95 Room Air Physical Exam: General Appearance: WD/WN, no apparent distress ENT: hearing grossly normal Neck: supple, no adenopathy Respiratory/Chest: no respiratory distress, no accessory muscle use Cardiovascular: no JVD Gastrointestinal: Abdomen: normal abdomen Bladder: normal bladder Renal: normal renal Liver: normal liver Spleen: normal spleen Extremities: non-tender Neurologic/Psychiatric: alert, oriented x 3 Skin: normal color Assessment & Plan Assessment & Plan A/P 75 yo male with gross hematuria Seen prostate enlargement in the context of recurrent hematuria will start finasteride empirically. Hb stable, apparently improving hematuria with CBI. Hand irrigate PRN bladder pressure / clots. Hold anticoagulation if possible until resolution of hematuria. Seen cardiac disease will attempt to manage nonoperatively if possible. Thank you for allowing us to participate in this patient's care. Will follow.
[2016-06-30 16:03] LABS: HEMATOCRIT 35.3 % (42-52)
[2016-06-30] MEDS: DIGOXIN 0.25 MG TAB PO SCH (17:09)
[2016-06-30] MEDS: SIMVASTATIN 10 MG TAB PO SCH (20:13)
[2016-06-30] MEDS: INSULIN GLARGINE SOLOSTAR 100 UNITS/ML 3 ML PEN SC SCH (21:32)
[2016-06-30 21:57] LABS: HEMATOCRIT 31.2 % (42-52)
[2016-07-01] VITALS: O2SAT 95
[2016-07-01] MEDS: SODIUM CHLORIDE 0.9% 1000ML 1,000 ML IV SCH ×2 (00:59→11:17)
[2016-07-01 04:29] LABS: BASO % 0.2 %; BASO ABS # 0.02 K/uL (0-0.2); EOS % 0.4 %; HEMATOCRIT 33.2 % (42-52); IG% 0.2 %; LYMPH % 17.3 %; LYMPH ABS # 1.77 K/uL (1.2-3.4); MEAN CELL VOLUME 88.3 fL (80-100); MEAN CORPUSCULAR HEMOGLOBIN 27.7 pg (25-34); MEAN CORPUSCULAR HGB CONC 31.3 g/dl (32-36); MEAN PLATELET VOLUME 11.4 fL (7.4-10.4); MONO % 7.1 %; NEUT % 74.8 %; PLATELET COUNT 131 K/uL (130-400); RED BLOOD COUNT 3.76 M/uL (4.7-6.1); WHITE BLOOD COUNT 10.25 K/uL (4.8-10.8)
[2016-07-01 04:38] LABS: PROTHROMBIN TIME (PATIENT) 11.1 SECONDS (9.0-12.0)
[2016-07-01 04:55] LABS: BUN/CREATININE RATIO 10.2 (10-20); CALCIUM 8.7 mg/dl (8.5-10.1); CREATININE 0.95 mg/dl (0.60-1.40); POTASSIUM 4.1 mmol/L (3.5-5.1)
[2016-07-01 05:20] LABS: COMPLETE YES; OVALOCYTES 1+
[2016-07-01] MEDS: ISOSORBIDE MONONITRATE 30 MG TABCR PO SCH (07:59)
[2016-07-01] MEDS: FERROUS SULFATE 325 MG TAB PO SCH ×3 (07:59→18:29)
[2016-07-01] MEDS: AMLODIPINE BESYLATE 5 MG TAB PO SCH (08:00)
[2016-07-01] MEDS: ENALAPRIL MALEATE 10 MG TAB PO SCH ×2 (08:00→21:11)
[2016-07-01] MEDS: GABAPENTIN 800 MG TAB PO SCH ×2 (08:00→21:11)
[2016-07-01] MEDS: MAGNESIUM OXIDE 400 MG TAB PO SCH (08:00)
[2016-07-01] MEDS: FINASTERIDE 5 MG TAB PO SCH (08:00)
[2016-07-01] MEDS: FELODIPINE 5 MG TABCR PO SCH (08:00)
[2016-07-01] MEDS: MULTIVITAMIN TAB PO SCH (08:00)
[2016-07-01 08:05] VITALS: BP 168/71; PULSE 60; TEMP 37; O2SAT 94
[2016-07-01] MEDS: INSULIN ASPART 100 UNITS/ML 3 ML PEN SC SCH ×4 (08:32→21:14)
[2016-07-01 10:42] LABS: HEMATOCRIT 28.9 % (42-52)
[2016-07-01] MEDS: TRAMADOL HCL 50 MG TAB PO PRN (11:20)
--- NOTE | 2016-07-01 13:51 | Progress Note ---
Subjective Date of Service: Jul 01, 2016. Subjective Pt evaluation today including: conversation w/ patient, conversation w/ family , physical exam, chart review, lab review, review of inpatient medication list Pain: Chronic LBP, thompson discomfort PO Intake: Dane PO, no emesis Voiding: thompson catheter in place (mod CBI with clear yellow urine, hematuria resolved) 75 yo male with a history of recurrent hematuria admitted on CBI. His is in room today. His urine is now clear, CBI slower than yesterday. He notes chronic fatigue and lower back pain but these symptoms predate his hematuria. He notes some confusion last night, ? , now improved. He complains of thompson discomfort. Hb noted to have drifted downwards despite improvement in the appearance of his urine, now 9.1. He was placed on iron for similar circumstances previously. Problem List Medical Problems: (1) Abdominal pain Status: Acute (2) Hematuria Status: Acute (3) Urinary retention Status: Acute Review of Systems Constitutional: No chills, No fever Eyes: No worsening of vision ENT: No hearing loss Respiratory: No shortness of breath Cardiac: No chest pain Abdomen: No nausea, No vomiting Male : + see HPI, No hematuria (resolved) Neurologic: No memory loss, No paralysis Psychiatric: No depression symptoms Heme: + abnormal bleeding/bruising Endo: + excessive urination Skin: No new/changing skin lesions Objective Vital Signs Date Time Temp Pulse Resp B/P Pulse Ox O2 Delivery O2 Flow Rate FiO2 07/01/16 08:05 37.0 60 18 168/71 94 Room Air 07/01/16 08:00 Room Air 07/01/16 00:00 95 Room Air 06/30/16 23:49 37.0 65 18 158/66 97 Room Air 06/30/16 20:00 95 Room Air 06/30/16 18:05 36.9 52 20 127/65 95 Room Air 06/30/16 17:09 56 06/30/16 17:00 36.9 52 20 95 Physical Exam General Appearance: WD/WN, no apparent distress ENT: hearing grossly normal Neck: supple, no adenopathy Respiratory/Chest: no respiratory distress, no accessory muscle use Cardiovascular: no JVD Abdomen: non tender, soft Neurologic/Psychiatric: alert, oriented x 3 Skin: normal color Laboratory Results Last 24 Hours Test 06/30/16 15:50 06/30/16 16:27 06/30/16 21:22 06/30/16 21:49 Hemoglobin 11.2 g/dL 10.1 g/dL Hematocrit 35.3 % 31.2 % Bedside Glucose 181 mg/dl 167 mg/dl Test 07/01/16 04:15 07/01/16 07:43 07/01/16 09:54 07/01/16 11:41 White Blood Count 10.25 K/uL Red Blood Count 3.76 M/uL Hemoglobin 10.4 g/dL 9.1 g/dL Hematocrit 33.2 % 28.9 % Mean Corpuscular Volume 88.3 fL Mean Corpuscular Hemoglobin 27.7 pg Mean Corpuscular Hemoglobin Concent 31.3 g/dl Platelet Count 131 K/uL Mean Platelet Volume 11.4 fL Neutrophils (%) (Auto) 74.8 % Lymphocytes (%) (Auto) 17.3 % Monocytes (%) (Auto) 7.1 % Eosinophils (%) (Auto) 0.4 % Basophils (%) (Auto) 0.2 % Neutrophils # (Auto) 7.67 K/uL Lymphocytes # (Auto) 1.77 K/uL Monocytes # (Auto) 0.73 K/uL Eosinophils # (Auto) 0.04 K/uL Basophils # (Auto) 0.02 K/uL RDW Standard Deviation 68.5 fL RDW Coefficient of Variation 21.2 % Immature Granulocyte % (Auto) 0.2 % Immature Granulocyte # (Auto) 0.02 K/uL Basophilic Stippling 1+ Ovalocytes 1+ Prothrombin Time 11.1 SECONDS Prothromb Time International Ratio 1.0 Sodium Level 141 mmol/L Potassium Level 4.1 mmol/L Chloride Level 106 mmol/L Carbon Dioxide Level 31 mmol/L Anion Gap 4.0 mmol/L Blood Urea Nitrogen 10 mg/dl Creatinine 0.95 mg/dl Est Creatinine Clear Calc Drug Dose 88.4 ml/min Estimated GFR () 89.1 Estimated GFR (Non- 76.9 BUN/Creatinine Ratio 10.2 Random Glucose 110 mg/dl Calcium Level 8.7 mg/dl Bedside Glucose 114 mg/dl 234 mg/dl Assessment and Plan A/P 75 yo male with improved hematuria. I think it would be reasonable to proceed with a trial of void. Would not restart anticoagulation for a few more days. Intermittent hematuria could be expected. Finasteride started for possible BPH component to hematuria. If patient able to void should be stable for DC home from a perspective. Further management per primary service. Will arrange for office f/u to check on his progress after discharge. Thank you for allowing us to participate in this patient's care.
[2016-07-01 15:45] LABS: HEMATOCRIT 33.2 % (42-52)
[2016-07-01 16:05] VITALS: BP 118/62; PULSE 64; TEMP 36.8; O2SAT 93
[2016-07-01] MEDS: DIGOXIN 0.25 MG TAB PO SCH (16:58)
--- NOTE | 2016-07-01 18:57 | Hospitalist Progress Note ---
Hospitalist Progress Note Date of Service Jul 01, 2016. Subjective Pt evaluation today including: conversation w/ patient, physical exam, chart review, lab review, review of studies, review of inpatient medication list Urine is clear. Patient complaining of irritation from thompson. Will D/C irrigation and IVF. Nursing reported agitation overnight. Patient tells me that he slept well without problems. Additional Comments: A 10 system review was performed and all were negative. Positives were placed in the subjective section. Objective Vital Signs Date Time Temp Pulse Resp B/P Pulse Ox O2 Delivery O2 Flow Rate FiO2 07/01/16 16:58 66 07/01/16 16:05 36.8 64 16 118/62 93 Room Air 07/01/16 08:05 37.0 60 18 168/71 94 Room Air 07/01/16 08:00 Room Air 07/01/16 00:00 95 Room Air 06/30/16 23:49 37.0 65 18 158/66 97 Room Air 06/30/16 20:00 95 Room Air Physical Exam Notes: GEN: Awake, alert, and oriented x 3. Not in acute distress HEENT: Tm's intact, no inflammation, EOMI, PERRLA, MMM Neck: Soft, supple Lungs: CTA b/l, no r/r/w Heart: REG, nrl S1S2 without murmurs, rubs or gallops Abdomen: Soft, NT, ND, + BS EXT: No C/C/E NEURO: CN's II-XII grossly intact, non-focal Skin: warm, dry, no rashes PSYCH: pleasant, cooperative. Laboratory Results Last 24 Hours Test 06/30/16 21:22 06/30/16 21:49 07/01/16 04:15 07/01/16 07:43 Bedside Glucose 167 mg/dl 114 mg/dl Hemoglobin 10.1 g/dL 10.4 g/dL Hematocrit 31.2 % 33.2 % White Blood Count 10.25 K/uL Red Blood Count 3.76 M/uL Mean Corpuscular Volume 88.3 fL Mean Corpuscular Hemoglobin 27.7 pg Mean Corpuscular Hemoglobin Concent 31.3 g/dl Platelet Count 131 K/uL Mean Platelet Volume 11.4 fL Neutrophils (%) (Auto) 74.8 % Lymphocytes (%) (Auto) 17.3 % Monocytes (%) (Auto) 7.1 % Eosinophils (%) (Auto) 0.4 % Basophils (%) (Auto) 0.2 % Neutrophils # (Auto) 7.67 K/uL Lymphocytes # (Auto) 1.77 K/uL Monocytes # (Auto) 0.73 K/uL Eosinophils # (Auto) 0.04 K/uL Basophils # (Auto) 0.02 K/uL RDW Standard Deviation 68.5 fL RDW Coefficient of Variation 21.2 % Immature Granulocyte % (Auto) 0.2 % Immature Granulocyte # (Auto) 0.02 K/uL Basophilic Stippling 1+ Ovalocytes 1+ Prothrombin Time 11.1 SECONDS Prothromb Time International Ratio 1.0 Sodium Level 141 mmol/L Potassium Level 4.1 mmol/L Chloride Level 106 mmol/L Carbon Dioxide Level 31 mmol/L Anion Gap 4.0 mmol/L Blood Urea Nitrogen 10 mg/dl Creatinine 0.95 mg/dl Est Creatinine Clear Calc Drug Dose 88.4 ml/min Estimated GFR () 89.1 Estimated GFR (Non- 76.9 BUN/Creatinine Ratio 10.2 Random Glucose 110 mg/dl Calcium Level 8.7 mg/dl Test 07/01/16 09:54 07/01/16 11:41 07/01/16 15:35 07/01/16 16:44 Hemoglobin 9.1 g/dL 10.7 g/dL Hematocrit 28.9 % 33.2 % Bedside Glucose 234 mg/dl 125 mg/dl Assessment and Plan 1) Hematuria - resolved, D/C irrigation and thompson. urination trial overnight. Straight cath prn. 2) A.Fib - rate stable, warfarin held. 3) Type II DM - Sliding scale insulin and Lantus. 4) HTN - stable now. 5) Liver CA DVT prophylaxis: SCDs Anticipate Discharge tomorrow.
[2016-07-01] MEDS ORDERED: LORAZEPAM INJ 0.5 MG in SYRINGE 0.25 ML IV PRN (19:00)
[2016-07-01] MEDS: SIMVASTATIN 10 MG TAB PO SCH (21:11)
[2016-07-01] MEDS: INSULIN GLARGINE SOLOSTAR 100 UNITS/ML 3 ML PEN SC SCH (21:13)
[2016-07-02 00:54] VITALS: BP 162/77; PULSE 65; TEMP 37.1; O2SAT 95
[2016-07-02 06:26] LABS: BASO % 0.1 %; BASO ABS # 0.01 K/uL (0-0.2); EOS % 0.6 %; HEMATOCRIT 29.8 % (42-52); IG% 0.1 %; LYMPH % 15.5 %; LYMPH ABS # 1.08 K/uL (1.2-3.4); MEAN CELL VOLUME 88.2 fL (80-100); MEAN CORPUSCULAR HEMOGLOBIN 27.5 pg (25-34); MEAN CORPUSCULAR HGB CONC 31.2 g/dl (32-36); MEAN PLATELET VOLUME 11.7 fL (7.4-10.4); MONO % 9.6 %; NEUT % 74.1 %; PLATELET COUNT 128 K/uL (130-400); RED BLOOD COUNT 3.38 M/uL (4.7-6.1); WHITE BLOOD COUNT 6.97 K/uL (4.8-10.8)
[2016-07-02 06:30] LABS: PROTHROMBIN TIME (PATIENT) 10.9 SECONDS (9.0-12.0)
[2016-07-02 06:50] LABS: BUN/CREATININE RATIO 10.1 (10-20); CALCIUM 8.7 mg/dl (8.5-10.1); CREATININE 0.82 mg/dl (0.60-1.40); POTASSIUM 3.9 mmol/L (3.5-5.1)
[2016-07-02 07:13] LABS: ANISOCYTOSIS PRESENT; COMPLETE YES
[2016-07-02 07:48] VITALS: BP 146/73; PULSE 60; TEMP 36.9; O2SAT 97
[2016-07-02] MEDS: MAGNESIUM OXIDE 400 MG TAB PO SCH (07:59)
[2016-07-02] MEDS: FELODIPINE 5 MG TABCR PO SCH (07:59)
[2016-07-02] MEDS: FERROUS SULFATE 325 MG TAB PO SCH (07:59)
[2016-07-02] MEDS: ISOSORBIDE MONONITRATE 30 MG TABCR PO SCH (07:59)
[2016-07-02] MEDS: MULTIVITAMIN TAB PO SCH (07:59)
[2016-07-02] MEDS: GABAPENTIN 800 MG TAB PO SCH (07:59)
[2016-07-02] MEDS: AMLODIPINE BESYLATE 5 MG TAB PO SCH (07:59)
[2016-07-02] MEDS: FINASTERIDE 5 MG TAB PO SCH (07:59)
[2016-07-02] MEDS: ENALAPRIL MALEATE 10 MG TAB PO SCH (08:00)
[2016-07-02] MEDS: INSULIN ASPART 100 UNITS/ML 3 ML PEN SC SCH (08:26)
--- NOTE | 2016-07-02 08:29 | Progress Note ---
Subjective Date of Service: Jul 02, 2016. Subjective Pt evaluation today including: conversation w/ patient, chart review, lab review Voiding: no voiding problems 75 year old male admitted with hematuria. CBI has been discontinued and thompson is out. He is voiding clear damion urine. Encouraged increase in fluid intake. He reports it can be hard to get stream started but feels he is able to empty his bladder. Started on finasteride- explained reasoning of medication to patient. AFVSS Hgb is 9.3 Problem List Medical Problems: (1) Abdominal pain Status: Acute (2) Hematuria Status: Acute (3) Urinary retention Status: Acute Review of Systems Constitutional: No chills, No fever ENT: No hearing loss Respiratory: No cough, No shortness of breath Cardiac: No chest pain Abdomen: No nausea, No pain Male : + see HPI Neurologic: No memory loss Heme: No abnormal bleeding/bruising Objective Vital Signs Date Time Temp Pulse Resp B/P Pulse Ox O2 Delivery O2 Flow Rate FiO2 07/02/16 07:48 36.9 60 20 146/73 97 Room Air 07/02/16 00:54 37.1 65 16 162/77 95 Room Air 07/02/16 00:05 CPAP 07/01/16 16:58 66 07/01/16 16:05 36.8 64 16 118/62 93 Room Air 07/01/16 16:00 Room Air Physical Exam General Appearance: WD/WN, no apparent distress ENT: hearing grossly normal Respiratory/Chest: no respiratory distress, no accessory muscle use Neurologic/Psychiatric: alert, normal mood/affect, oriented x 3 Skin: normal color, warm/dry Laboratory Results Last 24 Hours Test 07/01/16 09:54 07/01/16 11:41 07/01/16 15:35 07/01/16 16:44 Hemoglobin 9.1 g/dL 10.7 g/dL Hematocrit 28.9 % 33.2 % Bedside Glucose 234 mg/dl 125 mg/dl Test 07/01/16 19:54 07/02/16 05:39 07/02/16 08:11 Bedside Glucose 220 mg/dl 123 mg/dl White Blood Count 6.97 K/uL Red Blood Count 3.38 M/uL Hemoglobin 9.3 g/dL Hematocrit 29.8 % Mean Corpuscular Volume 88.2 fL Mean Corpuscular Hemoglobin 27.5 pg Mean Corpuscular Hemoglobin Concent 31.2 g/dl Platelet Count 128 K/uL Mean Platelet Volume 11.7 fL Neutrophils (%) (Auto) 74.1 % Lymphocytes (%) (Auto) 15.5 % Monocytes (%) (Auto) 9.6 % Eosinophils (%) (Auto) 0.6 % Basophils (%) (Auto) 0.1 % Neutrophils # (Auto) 5.16 K/uL Lymphocytes # (Auto) 1.08 K/uL Monocytes # (Auto) 0.67 K/uL Eosinophils # (Auto) 0.04 K/uL Basophils # (Auto) 0.01 K/uL RDW Standard Deviation 69.2 fL RDW Coefficient of Variation 21.4 % Immature Granulocyte % (Auto) 0.1 % Immature Granulocyte # (Auto) 0.01 K/uL Anisocytosis PRESENT Prothrombin Time 10.9 SECONDS Prothromb Time International Ratio 1.0 Sodium Level 141 mmol/L Potassium Level 3.9 mmol/L Chloride Level 105 mmol/L Carbon Dioxide Level 29 mmol/L Anion Gap 7.0 mmol/L Blood Urea Nitrogen 8 mg/dl Creatinine 0.82 mg/dl Est Creatinine Clear Calc Drug Dose 102.5 ml/min Estimated GFR () 98.9 Estimated GFR (Non- 85.3 BUN/Creatinine Ratio 10.1 Random Glucose 122 mg/dl Calcium Level 8.7 mg/dl Assessment and Plan Hematuria CBI and thompson is out. Voiding okay. Ok to d/c home from perspective. Our office will call to set up follow up. No further management. Please recall prn.
[2016-07-02] MEDS ORDERED: PRS5 PO (08:56)
--- NOTE | 2016-07-02 09:01 | Discharge Instructions ---
Discharge Instructions Date of Service Jul 02, 2016. Admission Reason for Admission: Hematuria Discharge Discharge Diagnosis / Problem: Hematuria Discharge Goals Goal(s): Decrease discomfort, Improve disease control Activity Recommendations Activity Limitations: resume your previous activity . Instructions / Follow-Up Instructions / Follow-Up PCP in 5-7 days Urology, Dr. Hawkins - His office will call you with appointment. If you do not get word from them by mid week please call office. Your Coumadin (warfarin) was held due to bleeding. You may restart taking Coumadin (warfarin) on Saturday07-06-16 as you had been taking. Then check a PT/ INR (blood test) on 07-09 or 07-10. Current Hospital Diet Patient's current hospital diet: Diabetes Type 2 Diet Discharge Diet Recommended Diet: Diabetes Type 2 Diet Procedures Procedures Performed: None. Pending Studies Studies pending at discharge: no Laboratory Results Last 24 Hours Test 07/01/16 09:54 07/01/16 11:41 07/01/16 15:35 07/01/16 16:44 Hemoglobin 9.1 g/dL 10.7 g/dL Hematocrit 28.9 % 33.2 % Bedside Glucose 234 mg/dl 125 mg/dl Test 07/01/16 19:54 07/02/16 05:39 07/02/16 08:11 Bedside Glucose 220 mg/dl 123 mg/dl White Blood Count 6.97 K/uL Red Blood Count 3.38 M/uL Hemoglobin 9.3 g/dL Hematocrit 29.8 % Mean Corpuscular Volume 88.2 fL Mean Corpuscular Hemoglobin 27.5 pg Mean Corpuscular Hemoglobin Concent 31.2 g/dl Platelet Count 128 K/uL Mean Platelet Volume 11.7 fL Neutrophils (%) (Auto) 74.1 % Lymphocytes (%) (Auto) 15.5 % Monocytes (%) (Auto) 9.6 % Eosinophils (%) (Auto) 0.6 % Basophils (%) (Auto) 0.1 % Neutrophils # (Auto) 5.16 K/uL Lymphocytes # (Auto) 1.08 K/uL Monocytes # (Auto) 0.67 K/uL Eosinophils # (Auto) 0.04 K/uL Basophils # (Auto) 0.01 K/uL RDW Standard Deviation 69.2 fL RDW Coefficient of Variation 21.4 % Immature Granulocyte % (Auto) 0.1 % Immature Granulocyte # (Auto) 0.01 K/uL Anisocytosis PRESENT Prothrombin Time 10.9 SECONDS Prothromb Time International Ratio 1.0 Sodium Level 141 mmol/L Potassium Level 3.9 mmol/L Chloride Level 105 mmol/L Carbon Dioxide Level 29 mmol/L Anion Gap 7.0 mmol/L Blood Urea Nitrogen 8 mg/dl Creatinine 0.82 mg/dl Est Creatinine Clear Calc Drug Dose 102.5 ml/min Estimated GFR () 98.9 Estimated GFR (Non- 85.3 BUN/Creatinine Ratio 10.1 Random Glucose 122 mg/dl Calcium Level 8.7 mg/dl Hemoglobin A1c Test 06/30/16 03:50 Range/Units Estimated Average Glucose 143 mg/dl Hemoglobin A1c 6.6 H 4.5-5.6 % Medical Emergencies . Who to Call and When: Medical Emergencies: If at any time you feel your situation is an emergency, please call 911 immediately. . Non-Emergent Contact Non-Emergency issues call your: Primary Care Provider . . "Provider Documentation" section prepared by Carl Jackman. VTE Core Measure Inpt VTE Proph given/why not?: Warfarin (Coumadin), T.E.D. Stockings, SCD's
[2016-07-02 09:46] VITALS: BP 146/73; PULSE 60; TEMP 36.9; O2SAT 97
[2016-07-02 10:14] VITALS: Ht 190.5 cm; Wt 113.3 kg
--- NOTE | 2016-07-02 19:12 | Discharge Summary ---
Discharge Summary Date of Service Jul 02, 2016. Discharge Summary Admission Date: Jun 29, 2016 at 19:44 Discharge Date: Jul 02, 2016 Discharge Disposition: Home Principal Diagnosis: Hematuria Problems/Secondary Diagnoses: A.Fib/Liver CA/BPH Procedures: None. Consultations: Dr. Hawkins, urology. Medication Reconciliation New Medications: Finasteride (Finasteride) 5 Mg Tab 5 MG PO QAM for 30 Days, #30 TAB 0 Refills Continued Medications: Amlodipine (Norvasc) 10 Mg Tab 10 MG PO DAILY, TAB Atenolol (Tenormin) 25 Mg Tab 25 MG PO Q2D, TAB Clopidogrel (Plavix) 75 Mg Tab 75 MG PO DAILY, TAB Digoxin (Digoxin) 0.25 Mg Tab 2 TAB PO DAILY Enalapril (Vasotec) 10 Mg Tab 10 MG PO BID, TAB Felodipine (Felodipine ER) 10 Mg Tabcr 10 MG PO DAILY Ferrous Sulfate (Ferrous Sulfate) 325 Mg Tab 1 TAB PO TID Furosemide (Lasix) 40 Mg Tab 40 MG PO DAILY PRN for edema/weight gain, TAB Gabapentin (Neurontin) 800 Mg Tab 800 MG PO BID, TAB Glipizide (Glipizide) 10 Mg Tab 10 MG PO BID Insulin Glargine (Lantus) 100 Unit/Ml Inj 40 UNITS SC QPM, VIAL Isosorbide Mononitrate (Isosorbide Mononitrate ER) 30 Mg Tabcr 1 TAB PO DAILY Magnesium Oxide (Mag-Ox) 400 Mg Tab 400 MG PO DAILY, TAB Metformin Hcl (Glucophage) 1,000 Mg Tab 1000 MG PO QPM, TAB Multiple Vitamin (Multivitamin) 1 Tab Tab 1 TAB PO DAILY, TAB Nitroglycerin (Nitrostat) 0.4 Mg Sub 0.4 MG UT PRN, BTL Simvastatin (Zocor) 10 Mg Tab 10 MG PO QPM, TAB Sitagliptin-Metformin Hcl (Janumet) 1 Tab Tab 2 TABS PO DAILY Temazepam (Restoril) 15 Mg Cap 15 MG PO HS PRN for Sleep, CAP Tramadol (Ultram) 50 Mg Tab 50 MG PO Q4H PRN for Pain, TAB Discontinued Medications: Warfarin Sod (Jantoven) 10 Mg Tab 10 MG PO DAILY Discharge Exam A 10 system review was performed and all were negative. GEN: Awake, alert Not in acute distress HEENT: Tm's intact, no inflammation, EOMI, PERRLA, MMM Neck: Soft, supple Lungs: CTA b/l, no r/r/w Heart: REG, nrl S1S2 without murmurs, rubs or gallops Abdomen: Soft, NT, ND, + BS EXT: No C/C/E NEURO: CN's II-XII grossly intact, non-focal Skin: warm, dry, no rashes PSYCH: pleasant, cooperative. Hospital Course The patient developed hematuria with significant clot formation. He was therapeutic on warfarin due to A.fib. He was treated with bladder irrigation until there was no clyde blood. He received dose of vitamin K and his INR normalized. He was started on Proscar in that it was felt that bleeding was likely from prostate. He will follow up with urology as an outpatient. He may resume warfarin in 4 days. Other issues during hospitalization are as below: Type II DM - Sliding scale insulin and Lantus. HTN - stable now. Nursing noted signs of sundowning overnight. The patient was confused and attempted to get out of bed. He did not recall this in the am. DVT prophylaxis: SCDs Total Time Spent: Greater than 30 minutes This includes examination of the patient, discharge planning, medication reconciliation, and communication with other providers. Discharge Instructions Please refer to the electronic Patient Visit Report (Discharge Instructions) for additional information. Follow-Up PCP in 5-7 days U[address]Dr. Hawkins - call office for appointment.
== END 2016-07-02 10:43 | disposition home or self-care (01) | DRG 696 ==
LOC: ENRESERVDT → ENRESERVTM → C.EDB 12:02 → C.2T 19:44 → C.MS4W 06-30 18:17
PROVIDERS: ADMIT Hospitalist; ATTEND Hospitalist
DX: R31.0 Gross hematuria (principal); C22.8 Malignant neoplasm of liver, primary, unspecified as to type; I48.91 Unspecified atrial fibrillation; N40.0 Benign prostatic hyperplasia without lower urinary tract symptoms; Z79.01 Long term (current) use of anticoagulants; E11.9 Type 2 diabetes mellitus without complications; I10 Essential (primary) hypertension; I25.10 Atherosclerotic heart disease of native coronary artery without angina pectoris; Z79.02 Long term (current) use of antithrombotics/antiplatelets; Z79.4 Long term (current) use of insulin; D50.9 Iron deficiency anemia, unspecified; Z66 Do not resuscitate; E78.00 Pure hypercholesterolemia, unspecified; Z83.3 Family history of diabetes mellitus; Z82.49 Family history of ischemic heart disease and other diseases of the circulatory system